=== PATIENT | male | born 1955 | race Caucasian/White ===

== ENCOUNTER 2016-07-25 20:49 | Emergency (ER) | payer BC ==
[2016-07-25 21:02] VITALS: BP 132/89
[2016-07-25] MEDS ORDERED: ceFUROXime TAB(*) 250 MG PO ONE (21:42)
[2016-07-25] MEDS ORDERED: Ibuprofen TAB* 600 MG PO ONE (21:42)
--- NOTE | 2016-07-25 21:43 | UC ---
Respiratory Complaint HPI - HPI Summary HPI Summary: 60 yo male with sinus symptoms which he thinks triggered a migrain has had migraines since he was a kid this is his typical migraine left hemicranial with nausea - History of Current Complaint Chief Complaint: UCGeneralIllness Stated Complaint: SINUS Time Seen by Provider: 07/25/16 21:36 Hx Obtained From: Patient Onset/Duration: Gradual Onset, Lasting Days Timing: Constant Pain Intensity: 6 Pain Scale Used: 0-10 Numeric Associated Signs And Symptoms: Positive: Nasal Congestion, Sinus Discomfort - Allergies/Home Medications Allergies/Adverse Reactions: Allergies Allergy/AdvReac Type Severity Reaction Status Date / Time No Known Allergies Allergy Verified 07/25/16 21:03 Home Medications: Home Medications Fluticasone NASAL SPRAY 50MCG* [Flonase NASAL SPRAY 50MCG*] 2 spray BOTH NARES DAILY PRN 07/25/16 [History Confirmed 07/25/16] Pseudoephedrine HCl [Decongestant] 30 mg PO ONCE PRN 07/25/16 [History Confirmed 07/25/16] PMH/Surg Hx/FS Hx/Imm Hx Previously Healthy: Yes Endocrine History Of: Reports: Dyslipidemia Denies: Diabetes Cardiovascular History Of: Denies: Cardiac Disorders Respiratory History Of: Denies: Asthma GI/ History Of: Reports: Kidney Stones Neurological History Of: Reports: Migraine Cancer History Of: Reports: Prostate Cancer - Surgical History Surgical History: Yes Surgery Procedure, Year, and Place: Vericose Veins, ~1979 - Family History Known Family History: Positive: Hypertension, Diabetes - FATHER, Other - dad with prostate CA - Social History Alcohol Use: Rare Substance Use Type: None Smoking Status (MU): Never Smoked Tobacco - Immunization History Most Recent Influenza Vaccination: Fall 2014 Review of Systems Constitutional: Negative Skin: Negative Eyes: Negative ENT: Nasal Discharge Respiratory: Negative Cardiovascular: Negative Gastrointestinal: Negative Genitourinary: Negative Motor: Negative Neurovascular: Negative Musculoskeletal: Negative Neurological: Headache Psychological: Negative All Other Systems Reviewed And Are Negative: Yes Physical Exam Triage Information Reviewed: Yes Appearance: Well-Appearing, No Pain Distress, Well-Nourished Vital Signs: Initial Vital Signs Temp 98.7 F 07/25/16 20:55 Pulse 79 07/25/16 20:55 Resp 18 07/25/16 20:55 BP 132/89 07/25/16 20:55 Pulse Ox 96 07/25/16 20:55 Vital Signs Reviewed: Yes Eyes: Positive: Conjunctiva Clear ENT: Positive: Hearing grossly normal, Other: - left max sinus tenderness. Negative: Nasal congestion, Nasal drainage, Tonsillar exudate, Trismus, Muffled/ hoarse voice Dental Exam: Normal Neck: Positive: Supple, Nontender, No Lymphadenopathy Respiratory: Positive: Lungs clear, Normal breath sounds, No respiratory distress Cardiovascular: Positive: RRR, No Murmur Musculoskeletal: Positive: Strength Intact, ROM Intact Neurological: Positive: Alert Psychological Exam: Normal Skin Exam: Normal UC Diagnostic Evaluation - Laboratory O2 Sat by Pulse Oximetry: 96 - normal/not hypoxic Respiratory Course/Dx - Differential Dx/Diagnosis Provider Diagnoses: migraine. ?sinusititis Discharge - Discharge Plan Condition: Stable Disposition: HOME Prescriptions: Cefuroxime Axetil [Ceftin 250 MG] 250 mg PO BID #14 tab Patient Education Materials: Sinusitis (ED), Migraine Headache (ED) Referrals: Marissa Alvarez MD [Primary Care Provider] - If Needed Additional Instructions: recheck for new or worsening symptoms tylenol or advil for pain
== END 2016-07-25 21:53 | disposition home or self-care (01) ==
LOC: UCCORT 20:49
DX: G43.909 Migraine, unspecified, not intractable, without status migrainosus (principal)
CPT/HCPCS: 99212; A9270-GY; G0463

== ENCOUNTER 2016-09-08 12:42 | Emergency (ER) | payer BC ==
[2016-09-08 14:40] VITALS: BP 144/87
--- NOTE | 2016-09-08 15:05 | UC ---
Back Pain HPI - HPI Summary HPI Summary: was carrying a plastic dresser down some steps and lost his balance ands trained his lower back---not much relief with heat and Ibuprofen 400 mg - History of Current Complaint Chief Complaint: UCBackPain Stated Complaint: BACK PAIN Time Seen by Provider: 09/08/16 14:52 Hx Obtained From: Patient Onset/Duration: Sudden Onset, Still Present Timing: Constant Severity Initially: Moderate Severity Currently: Moderate Pain Intensity: 6 Pain Scale Used: 0-10 Numeric Back Pain: Is Diffuse - lumbar spins and bilateral musclar areas Character: Aching, Spasmodic, Stiffness Aggravating: Movement Alleviating: Heat, OTC Meds Associated Signs And Symptoms: Positive: Negative - Allergies/Home Medications Allergies/Adverse Reactions: Allergies Allergy/AdvReac Type Severity Reaction Status Date / Time No Known Allergies Allergy Verified 09/08/16 14:40 Home Medications: Home Medications Diphenhydramine HCl [Benadryl Allergy 25 MG CAP] 1 cap PO BID PRN 09/08/16 [ History Confirmed 09/08/16] PMH/Surg Hx/FS Hx/Imm Hx Previously Healthy: Yes Endocrine History Of: Reports: Dyslipidemia Denies: Diabetes Cardiovascular History Of: Denies: Cardiac Disorders Respiratory History Of: Denies: Asthma GI/ History Of: Reports: Kidney Stones Neurological History Of: Reports: Migraine Cancer History Of: Reports: Prostate Cancer - Surgical History Surgical History: Yes Surgery Procedure, Year, and Place: Vericose Veins, ~1979 - Family History Known Family History: Positive: Hypertension, Diabetes - FATHER, Other - dad with prostate CA - Social History Occupation: Employed Full-time Lives: Alone Alcohol Use: None Substance Use Type: None Smoking Status (MU): Never Smoked Tobacco - Immunization History Most Recent Influenza Vaccination: Fall 2014 Review of Systems Constitutional: Negative Skin: Negative Eyes: Negative ENT: Negative Respiratory: Negative Cardiovascular: Negative Gastrointestinal: Negative Genitourinary: Negative Motor: Negative Neurovascular: Negative Musculoskeletal: Negative, Myalgia - lower b/l Lumbar back area Neurological: Negative Psychological: Negative All Other Systems Reviewed And Are Negative: Yes Physical Exam Triage Information Reviewed: Yes Appearance: Well-Appearing, Well-Nourished, Pain Distress - mild Vital Signs: Initial Vital Signs Temp 98.3 F 09/08/16 14:34 Pulse 83 09/08/16 14:34 Resp 16 09/08/16 14:34 BP 144/87 09/08/16 14:34 Pulse Ox 98 09/08/16 14:34 Vital Signs Reviewed: Yes Eye Exam: Normal Eyes: Positive: Conjunctiva Clear ENT Exam: Normal ENT: Positive: Normal ENT inspection, Hearing grossly normal, Pharynx normal, TMs normal. Negative: Nasal congestion, Nasal drainage, Tonsillar swelling, Tonsillar exudate, Trismus, Muffled/hoarse voice Dental Exam: Normal Neck exam: Normal Neck: Positive: Supple, Nontender Respiratory Exam: Normal Respiratory: Positive: Chest non-tender, Lungs clear, Normal breath sounds, No respiratory distress, No accessory muscle use Cardiovascular Exam: Normal Cardiovascular: Positive: RRR, No Murmur, Pulses Normal, Brisk Capillary Refill Musculoskeletal Exam: Normal Musculoskeletal: Positive: Strength Intact, No Edema, ROM Limited @ - lower back Neurological Exam: Normal Neurological: Positive: Alert, Muscle Tone Normal Psychological Exam: Normal Skin Exam: Normal Back Pain Course/Dx - Course Course Of Treatment: ibuprofen, flexeril, back and core strengthening exercise, follow with pcp this week - Differential Dx/Diagnosis Differential Diagnosis/HQI/PQRI: Fracture, Herniated Disc, Strain, Sprain Provider Diagnoses: Low back strain Discharge - Discharge Plan Condition: Stable Disposition: HOME Prescriptions: Cyclobenzaprine TAB* [Flexeril 10 MG TAB*] 10 mg PO TID PRN #15 tab PRN Reason: muscle pain Ibuprofen TAB* [Motrin TAB* 600 MG] 600 mg PO Q6H PRN #40 tab PRN Reason: pain Patient Education Materials: Low Back Strain (ED), Core Strengthening Exercises (GEN), Lower Back Exercises (ED) Referrals: Marissa Alvarez MD [Primary Care Provider] - 5 Days
== END 2016-09-08 15:14 | disposition home or self-care (01) ==
LOC: UCCORT 12:42
DX: S39.012A Strain of muscle, fascia and tendon of lower back, initial encounter (principal); X50.0XXA Overexertion from strenuous movement or load, initial encounter; Y93.89 Activity, other specified; Y92.9 Unspecified place or not applicable; E78.5 Hyperlipidemia, unspecified; G43.909 Migraine, unspecified, not intractable, without status migrainosus; Z87.442 Personal history of urinary calculi; Z85.46 Personal history of malignant neoplasm of prostate
CPT/HCPCS: 99212; G0463

== ENCOUNTER 2016-11-13 10:26 | Emergency (ER) | payer BC ==
[2016-11-13 10:40] VITALS: BP 140/74
--- NOTE | 2016-11-13 11:01 | UC ---
Back Pain HPI - HPI Summary HPI Summary: Low back pain for about 10 weeks after a simple non traumatic injury. PT and OTC meds have not helped. No new neurologic symptoms such as numbness, saddle anesthesia, or weakness. - History of Current Complaint Chief Complaint: UCBackPain Stated Complaint: LOW BACK PAIN Time Seen by Provider: 11/13/16 10:42 Hx Obtained From: Patient Onset/Duration: Gradual Onset Timing: Constant Severity Initially: Moderate Severity Currently: Moderate Back Pain: Is Discrete @ - low back. Character: Dull, Aching, Spasmodic, Stiffness Aggravating: Movement - it worse in the morning after laying down for a while. Alleviating: Rest, OTC Meds Associated Signs And Symptoms: Negative: Swelling, Redness, Bruising, Fever, Weakness, Numbness, Tingling, Abdominal Pain, Flank Pain, Bladder Incontinence, Bowel Incontinence - Allergies/Home Medications Allergies/Adverse Reactions: Allergies Allergy/AdvReac Type Severity Reaction Status Date / Time No Known Allergies Allergy Verified 11/13/16 10:40 PMH/Surg Hx/FS Hx/Imm Hx Previously Healthy: Yes - no prior back disease or surgery. - Surgical History Surgical History: Yes Surgery Procedure, Year, and Place: Verico Veins, ~1979 - Family History Known Family History: Positive: Hypertension, Diabetes - FATHER, Other - dad with prostate CA - Social History Occupation: Employed Full-time Alcohol Use: None Substance Use Type: None Smoking Status (MU): Never Smoked Tobacco - Immunization History Most Recent Influenza Vaccination: Fall 2014 Review of Systems All Other Systems Reviewed And Are Negative: Yes Physical Exam Triage Information Reviewed: Yes Appearance: Well-Appearing - no pain at rest. He appears stiff with movement and walking. Vital Signs: Initial Vital Signs Temp 98.9 F 11/13/16 10:33 Pulse 82 11/13/16 10:33 Resp 16 11/13/16 10:33 BP 140/74 11/13/16 10:33 Pulse Ox 97 11/13/16 10:33 Vital Signs Reviewed: Yes Eye Exam: Normal Eyes: Positive: Conjunctiva Clear ENT Exam: Normal Neck exam: Normal Respiratory Exam: Normal Cardiovascular Exam: Normal Abdominal Exam: Normal Musculoskeletal Exam: Other - No midline percussion tenderness. Straight leg raise neg sid. Neurological Exam: Normal, Other - reflexes sid symmetric and 2+ patella and achilles. Psychological Exam: Normal Skin Exam: Normal Back Pain Course/Dx - Course Course Of Treatment: atrauamtic back pain not improving after usual supportive care such as PT and otc meds. x rays to eval for pathologic fx. no cord compression sx. He would like to be referred to [facility] ortho and possible spine and wellness. x rays do not show acute fracture. There are possible compression deformity. He is requesting [place] referral. we had a long discussion about risks and sedation with both meds. - Differential Dx/Diagnosis Differential Diagnosis/HQI/PQRI: Aneurysm, Arthritis, Cauda Equina Syndrome, Compressive Cord Syndrome, Epidural Abscess, Fracture, Herniated Disc, Neoplasm , Osteomyelitis, Osteoporosis, Renal Colic, Septic Arthritis, Strain, Sprain Provider Diagnoses: low back pain Discharge - Discharge Plan Condition: Good Disposition: HOME Prescriptions: Cyclobenzaprine TAB* [Flexeril 10 MG TAB*] 10 mg PO BID PRN #20 tab PRN Reason: Pain traMADol TAB* [Ultram*] 50 mg PO Q6HR PRN #20 tab MDD 3 PRN Reason: Pain Referrals: Ryan ANGELO,Mason Enrique [Medical Doctor] -
--- NOTE | 2016-11-13 11:30 | RAD ---
Indication: Low back pain. 2 views of the lumbar spine demonstrates mild compression of L4 and L2. L4 compression of 25% is noted. Compression fracture of the proximal 50% of L2. IMPRESSION: 50% compression of L2, 25% compression L4 age of which is undetermined.
== END 2016-11-13 11:29 | disposition home or self-care (01) ==
LOC: UCCORT 10:26
DX: M54.5 Low back pain (principal)
CPT/HCPCS: 72100; 99212; G0463

== ENCOUNTER 2016-11-27 14:05 | Emergency (ER) | payer BC ==
--- NOTE | 2016-11-27 14:27 | ED ---
Back Pain - HPI Summary HPI Summary: 61 YEAR OLD MALE PRESENTS WITH CHRONIC BACK PAIN. - History of Current Complaint Stated Complaint: BACK PAIN/REFILL Time Seen by Provider: 11/27/16 14:25 - Allergies/Home Medications Allergies/Adverse Reactions: Allergies Allergy/AdvReac Type Severity Reaction Status Date / Time No Known Allergies Allergy Verified 11/27/16 14:29 PMH/Surg Hx/FS Hx/Imm Hx Endocrine/Hematology History: Denies: Hx Diabetes Respiratory History: Denies: Hx Asthma History: Reports: Hx Kidney Stones Neurological History: Reports: Hx Migraine - Cancer History Cancer Type, Location and Year: Prostate Cancer - Surgical History Surgery Procedure, Year, and Place: Vericose Veins, ~1979 - Family History Known Family History: Positive: Hypertension, Diabetes - FATHER, Other - dad with prostate CA - Social History Alcohol Use: None Substance Use Type: Reports: None Smoking Status (MU): Never Smoked Tobacco Review of Systems Constitutional: Negative Eyes: Negative ENT: Negative Cardiovascular: Negative Respiratory: Negative Gastrointestinal: Negative Genitourinary: Negative Musculoskeletal: Other - BACK PAIN Positive: Myalgia All Other Systems Reviewed And Are Negative: Yes Physical Exam Triage Information Reviewed: Yes Vital Signs Reviewed: Yes Musculoskeletal: Positive: Pain @ - LUMBAR SACRAL PAIN Back Pain Course/Dx - Course Course Of Treatment: BACK PAIN - Diagnoses Provider Diagnoses: Back pain Discharge - Discharge Plan Condition: Stable Disposition: HOME Prescriptions: Cyclobenzaprine TAB* [Flexeril 10 MG TAB*] 10 mg PO BID PRN #30 tab PRN Reason: Pain - Back Patient Education Materials: Back Pain (ED) Referrals: Marissa Alvarez MD [Primary Care Provider] -
[2016-11-27 14:38] VITALS: BP 125/80
== END 2016-11-27 14:49 | disposition home or self-care (01) ==
LOC: UCCORT 14:05
DX: M54.5 Low back pain (principal); Z76.0 Encounter for issue of repeat prescription; G43.909 Migraine, unspecified, not intractable, without status migrainosus; Z87.442 Personal history of urinary calculi; Z85.46 Personal history of malignant neoplasm of prostate
CPT/HCPCS: 99212; G0463